=== PATIENT | female | born 1940 | race Caucasian/White ===

== ENCOUNTER 2018-08-14 15:56 | Emergency (ER) | payer SELFPAY ==
[~2018-08-14] VITALS: Ht 142.2 cm; Wt 72.7 kg
[~2018-08-14 15:56] MED LIST: ALPR0.5T5 PO; ALPRAZOLAM; ATOR10TA23 PO; BENICAR; LIPITOR; OLME40TA13 PO; PREDNISONE
[2018-08-14 16:00] VITALS: BP 192/84; PULSE 87; RESP 16; Ht 142.2 cm; Wt 72.7 kg
== END 2018-08-14 16:15 | disposition left against medical advice (07) ==
LOC: FTE 15:56
DX: Z53.21 Procedure and treatment not carried out due to patient leaving prior to being seen by health care provider (principal)

== ENCOUNTER 2018-11-14 19:17 | Emergency (ER) | payer SELFPAY ==
[~2018-11-14] VITALS: Ht 162.6 cm; Wt 72.1 kg
[2018-11-14 19:29] VITALS: BP 159/64; PULSE 88; RESP 20; Ht 162.6 cm; Wt 72.1 kg
== END 2018-11-14 20:08 | disposition left against medical advice (07) ==
LOC: E/R 19:17
DX: Z53.21 Procedure and treatment not carried out due to patient leaving prior to being seen by health care provider (principal)